=== PATIENT | male | born 1975 | race Caucasian/White ===

== ENCOUNTER 2019-02-16 02:31 | Emergency (ER) | payer OTHER ==
--- NOTE | 2019-02-16 02:59 | PDOC ---
History of Present Illness - General Chief Complaint: Pain, Acute Stated Complaint: ABD PAIN History Source: Patient Exam Limitations: No Limitations - History of Present Illness Initial Comments: 02/16/19 03:13 43 yo M with a hx of HTN presents to the emergency department with epigastric pain beginning at 8 pm. Gradual onset without previous pain before, he states it began after eating a greenlandic sandwich. The pain is located epigastric, non radiating, 7/10, sharp pain, without aggravating and relieving factors. Denies hx of RUQ pain when eating fatty foods. Denies hx of abdominal surgeries. Endorses 1x vomiting episode NBNB that he states helped relieve the pain. Shx: None Allergies: NKDA Social: Denies tobacco, alcohol, and substance abuse. Past History - Past Medical History Allergies/Adverse Reactions: Allergies Allergy/AdvReac Type Severity Reaction Status Date / Time No Known Allergies Allergy Verified 02/16/19 02:57 COPD: No - Suicide/Smoking/Psychosocial Hx Smoking History: Never smoked Review of Systems - Review of Systems Able to Perform ROS?: Yes Is the patient limited [place] proficient: No Constitutional: No: Chills, Diaphoresis, Fever, Weakness HEENTM: No: Eye Pain, Recent change in vision, Ear Pain, Nose Pain, Throat Pain , Mouth Pain Respiratory: No: Cough, Shortness of Breath, Hemoptysis Cardiac (ROS): No: Chest Pain, Lightheadedness, Palpitations, Syncope, Chest Tightness ABD/GI: Yes: Nausea, Vomiting, Abdominal cramping. No: Constipated, Diarrhea, Rectal Bleeding, Tarry Stools : No: Burning, Dysuria, Hematuria, Incontinence Musculoskeletal: No: Back Pain, Joint Pain, Neck Pain Integumentary: No: Bruising, Erythema, Rash Neurological: No: Headache, Numbness, Tingling, Tremors Psychiatric: No: Change in Appetite Endocrine: No: Unexplained Weight Gain Hematologic/Lymphatic: No: Anemia *Physical Exam - Vital Signs Last Vital Signs Temp Pulse Resp BP Pulse Ox 98.4 F 75 18 147/79 99 02/16/19 02:57 02/16/19 02:57 02/16/19 02:57 02/16/19 02:57 02/16/19 02:57 - Physical Exam General Appearance: Yes: Nourished, Appropriately Dressed, Obese. No: Apparent Distress, Intoxicated HEENT: positive: EOMI, DUKE, Normal Voice, Symmetrical, Pharynx Normal, Hearing Grossly Normal. negative: Pale Conjunctivae, Scleral Icterus (R), Scleral Icterus (L), Muffled/Hoarse voice, Pharyngeal Erythema, Tonsillar Exudate, Tonsillar Erythema, Excessive drooling Neck: positive: Trachea midline, Supple. negative: Tender, Lymphadenopathy (R) , Lymphadenopathy (L), Tender lateral, Tender midline Respiratory/Chest: positive: Lungs Clear, Normal Breath Sounds. negative: Chest Tender, Respiratory Distress, Accessory Muscle Use, Crackles, Rales, Rhonchi, Stridor, Wheezing Cardiovascular: positive: Regular Rhythm, Regular Rate, S1, S2. negative: Systolic Murmur Gastrointestinal/Abdominal: positive: Normal Bowel Sounds, Tender (epigastric. negative murphys), Flat, Soft. negative: Distended, Guarding, Rebound Lymphatic: negative: Adenopathy Musculoskeletal: positive: Normal Inspection. negative: CVA Tenderness, Vertebral Tenderness Extremity: positive: Normal Capillary Refill, Normal Inspection, Normal Range of Motion. negative: Tender, Swelling, Calf Tenderness Integumentary: positive: Normal Color, Dry, Warm. negative: Cold, Rash, Swelling, Ecchymosis Neurologic: positive: global human resources director II-XII NML intact, Fully Oriented, Alert, Normal Mood/ Affect, Normal Response, Motor Strength 5/5. negative: EOM Palsy, Facial Droop , Numbness, Sensory Deficit ED Treatment Course - LABORATORY CBC & Chemistry Diagram: 02/16/19 03:14 02/16/19 03:14 Medical Decision Making - Medical Decision Making 02/16/19 05:07 43 yo M with a hx of HTN presents to the emergency department with epigastric pain beginning at 8 pm. Initial vitals; Initial Vital Signs Temp Pulse Resp BP Pulse Ox 98.4 F 75 18 147/79 99 02/16/19 02:57 02/16/19 02:57 02/16/19 02:57 02/16/19 02:57 02/16/19 02:57 WOrk up: gastritis vs pancreatitis vs cholelithiasis vs cholecystitis vs GERD vs duodenal /gastric ulcer Laboratory Tests 02/16/19 02/16/19 03:14 03:14 WBC 10.7 H RBC 4.93 Hgb 14.3 Hct 43.1 MCV 87.4 MCH 29.0 MCHC 33.1 RDW 13.4 Plt Count 253 MPV 7.8 Absolute Neuts (auto) 8.0 Neutrophils % 74.9 Lymphocytes % 17.6 Monocytes % 5.5 Eosinophils % 1.6 Basophils % 0.4 Nucleated RBC % 0 Sodium 137 Potassium 3.9 Chloride 101 Carbon Dioxide 29 Anion Gap 7 L BUN 16 Creatinine 1.0 Est GFR (CKD-EPI)AfAm 106.36 Est GFR (CKD-EPI)NonAf 91.77 Random Glucose 132 H Calcium 9.0 Total Bilirubin 0.3 AST 27 ALT 64 H Alkaline Phosphatase 125 H Creatine Kinase 186 Creatine Kinase Index 0.6 CK-MB (CK-2) 1.2 Troponin I < 0.02 Total Protein 8.0 Albumin 3.6 Lipase 134 ALT and Alk phos elevated. pain controlled with tylenol, pepcid, maalox, and morphine. POCUS shows 1.36 cm gallstone without GBD thickening without pericholecystic fluid. Unable to visualize CBD due to shadowing artifact from stone. Will order a formal US to be done in AM to rule out CBD dilation. Will sign out to morning team for AM US. Signed out to Dr. Butler *DC/Admit/Observation/Transfer Diagnosis at time of Disposition: Abdominal pain Qualifiers: Abdominal location: epigastric Qualified Code(s): R10.13 - Epigastric pain - Discharge Dispostion Disposition: HOME - Referrals Referrals: Haley Martinez MD [Primary Care Provider] - Randal Kennedy MD [Staff Physician] - - Patient Instructions Printed Discharge Instructions: DI for Gallstones Additional Instructions: Please see your primary doctor and make an appointment to see the General Surgeon referred to you within the next 48 hours. Take over the counter Motrin for pain. Return to the ER for high fevers, excessive abdominal pain, vomiting, inability to eat or drink. Thank you - Post Discharge Activity
[2019-02-16 03:00] VITALS: BMI 39.3
--- NOTE | 2019-02-16 03:04 | PDOC ---
*Physical Exam - Vital Signs Last Vital Signs Temp Pulse Resp BP Pulse Ox 98.4 F 75 18 147/79 99 02/16/19 02:57 02/16/19 02:57 02/16/19 02:57 02/16/19 02:57 02/16/19 02:57 Medical Decision Making - Medical Decision Making 02/16/19 03:04 Patient seen by the advanced practice provider under my direct supervision. Ancillary testing reviewed as necessary. I agree with plan as outlined by the advanced practice provider. *DC/Admit/Observation/Transfer - Referrals Referrals: Haley Martinez MD [Primary Care Provider] - - Patient Instructions - Post Discharge Activity
[2019-02-16] MEDS ORDERED: FAMOTIDINE 20 MG/50 ML IVPB 20 MG/50 ML MG IVPB ONE ×2 (03:12→04:12)
[2019-02-16] MEDS ORDERED: MAG HYDROX/AL HYDROX/SIMETH 30 ML UNIT-DOSE CUP PO ONE (03:12)
[2019-02-16] MEDS ORDERED: SODIUM CHLORIDE 1,000 ML IV STA (03:12)
[2019-02-16] MEDS ORDERED: ACETAMINOPHEN 1000 MG/100 ML VIAL (NON FORMULARY) IVPB ONE (03:12)
[2019-02-16] MEDS ORDERED: ONDANSETRON 4 MG/2 ML VIAL IVPUSH ONE (03:12)
[2019-02-16 03:22] LABS: BASO % 0.4 % (0-2.0); EOS % 1.6 % (0-4.5); HEMATOCRIT 43.1 % (35.4-49); HEMOGLOBIN 14.3 GM/dL (11.7-16.9); LYMPH % 17.6 % (8-40); MCHC 33.1 g/dl (32.0-35.9); MEAN CELL VOLUME 87.4 fl (80-96); MEAN PLT VOLUME 7.8 fl (7.5-11.1); MONO % 5.5 % (3.8-10.2); NEUT % 74.9 % (42.8-82.8); PLATELET COUNT 253 K/MM3 (134-434); RBC 4.93 M/mm3 (4.00-5.60); RDW 13.4 % (11.9-15.9); WHITE BLOOD COUNT 10.7 K/mm3 (4.0-10.0)
[2019-02-16 03:46] LABS: ALBUMIN 3.6 g/dl (3.4-5.0); ALK PHOS 125 U/L (45-117); ANION GAP 7 MMOL/L (8-16); BILIRUBIN,TOTAL 0.3 mg/dL (0.2-1); BLOOD UREA NITROGEN 16 mg/dL (7-18); CHLORIDE 101 mmol/L (98-107); CO2 29 mmol/L (21-32); GLUCOSE,RANDOM 132 mg/dL (74-106); LIPASE 134 U/L (73-393); POTASSIUM 3.9 mmol/L (3.5-5.1); SGOT/AST 27 U/L (15-37); SGPT/ALT 64 U/L (13-61); SODIUM 137 mmol/L (136-145)
[2019-02-16] MEDS ORDERED: MAG HYDROX/AL HYDROX/SIMETH 30 ML UNIT-DOSE CUP ONE (04:12)
[2019-02-16] MEDS ORDERED: ACETAMINOPHEN INJECTION 100 ML IVPB ONE (04:12)
[2019-02-16] MEDS ORDERED: ONDANSETRON 4 MG/2 ML VIAL ONE (04:12)
--- NOTE | 2019-02-16 05:09 | PDOC ---
Attending Attestation - Resident Resident Name: Rodrigue Porter - ED Attending Attestation I have performed the following: I have examined & evaluated the patient, The case was reviewed & discussed with the resident, I agree w/resident's findings & plan - HPI HPI: 02/16/19 05:08 43-year-old male with epigastric pain for several hours with one episode of vomiting. Patient denies back pain chest pain shortness of breath or diarrhea. - Physicial Exam PE: 02/16/19 05:08 Agree with resident's exam - Medical Decision Making 02/16/19 05:08 43-year-old male with epigastric pain Patient greatly improved after antacids antiemetics and IV fluids Bedside ultrasound shows possible gallbladder disease We'll hold for a morning right upper quadrant ultrasound, plan on signing out to oncoming shift for final disposition
[2019-02-16] MEDS ORDERED: morphine CARPU-JECT 4 MG/1 ML DISP.SYRIN IVPUSH ONE (06:15)
[2019-02-16] MEDS ORDERED: morphine SULFATE 4 MG/ML VIAL ONE (06:33)
[2019-02-16 08:00] VITALS: TEMP 98.2
--- NOTE | 2019-02-16 10:46 | PDOC ---
*Physical Exam - Vital Signs Last Vital Signs Temp Pulse Resp BP Pulse Ox 98.2 F 79 16 137/78 98 02/16/19 07:39 02/16/19 07:39 02/16/19 07:39 02/16/19 07:39 02/16/19 07:39 ED Treatment Course - LABORATORY CBC & Chemistry Diagram: 02/16/19 03:14 02/16/19 03:14 - ADDITIONAL ORDERS Additional order review: Laboratory Results 02/16/19 03:14 Sodium 137 Potassium 3.9 Chloride 101 Carbon Dioxide 29 Anion Gap 7 L BUN 16 Creatinine 1.0 Est GFR (CKD-EPI)AfAm 106.36 Est GFR (CKD-EPI)NonAf 91.77 Random Glucose 132 H Calcium 9.0 Total Bilirubin 0.3 AST 27 ALT 64 H Alkaline Phosphatase 125 H Creatine Kinase 186 Creatine Kinase Index 0.6 CK-MB (CK-2) 1.2 Troponin I < 0.02 Total Protein 8.0 Albumin 3.6 Lipase 134 02/16/19 03:14 RBC 4.93 MCV 87.4 MCHC 33.1 RDW 13.4 MPV 7.8 Neutrophils % 74.9 Lymphocytes % 17.6 Monocytes % 5.5 Eosinophils % 1.6 Basophils % 0.4 - Medications Given in the ED: ED Medications Discontinued Medications Generic Name Dose Route Start Last Admin Trade Name Nba PRN Reason Stop Dose Admin Acetaminophen 1,000 mg 02/16/19 03:12 02/16/19 04:20 Ofirmev Injection - IVPB 02/16/19 03:13 1,000 mg ONCE ONE Administration Al Hydroxide/Mg Hydroxide 30 ml 02/16/19 03:12 02/16/19 04:15 Mylanta Oral Suspension - PO 02/16/19 03:13 30 ml ONCE ONE Administration Famotidine/Sodium Chloride 20 mg in 50 mls @ 100 mls/hr 02/16/19 03:12 04:50 Pepcid 20 Mg Premixed Ivpb - IVPB 02/16/19 03:41 100 mls/hr ONCE ONE Administration Sodium Chloride 1,000 mls @ 1,000 mls/hr 02/16/19 03:12 02/16/19 04:20 Normal Saline - IV 02/16/19 04:11 1,000 mls/hr ASDIR STA Administration Morphine Sulfate 4 mg 02/16/19 06:15 02/16/19 06:38 Morphine Injection - IVPUSH 02/16/19 06:16 4 mg ONCE ONE Administration Ondansetron HCl 4 mg 02/16/19 03:12 02/16/19 04:25 Zofran Injection IVPUSH 02/16/19 03:13 4 mg ONCE ONE Administration Medical Decision Making - Medical Decision Making 02/16/19 10:42 s/o from Dr. Porter 43 yo male with likely gallstone, pending AM sono Labs WNL with slight LFT elevation no N/V/F/C Sono shows cholelithiasis 2.8 cm without evidence of cholecystitis, no mention of CBD Pt NAD, eating and drinking without difficulty Pt will DC home with gen surg f/u pt safe for DC home at this time, all questions answered *DC/Admit/Observation/Transfer Diagnosis at time of Disposition: Abdominal pain Qualifiers: Abdominal location: epigastric Qualified Code(s): R10.13 - Epigastric pain - Discharge Dispostion Disposition: HOME - Referrals Referrals: Haley Martinez MD [Primary Care Provider] - Randal Kennedy MD [Staff Physician] - - Patient Instructions Printed Discharge Instructions: DI for Gallstones Additional Instructions: Please see your primary doctor and make an appointment to see the General Surgeon referred to you within the next 48 hours. Take over the counter Motrin for pain. Return to the ER for high fevers, excessive abdominal pain, vomiting, inability to eat or drink. Thank you - Post Discharge Activity
[2019-02-16 11:16] VITALS: BP 115/78; PULSE 107
--- NOTE | 2019-02-16 16:02 | EKG ---
Test Reason : Blood Pressure : / mmHG Vent. Rate : 072 BPM Atrial Rate : 072 BPM P-R Int : 156 ms QRS Dur : 092 ms QT Int : 398 ms P-R-T Axes : 048 -04 017 degrees QTc Int : 435 ms NORMAL SINUS RHYTHM NORMAL ECG NO PREVIOUS ECGS AVAILABLE Confirmed by SHANNON CARABALLO MD ([id number]) on 02/16/2019 4:01:47 PM Referred By: Confirmed By:SHANNON CARABALLO MD
== END 2019-02-16 11:21 | disposition home or self-care (01) ==
LOC: JER 02:31
PROC: 3E033GC Introduction of Other Therapeutic Substance into Peripheral Vein, Percutaneous Approach (ICD-10-PCS; principal; 2019-02-16)
PROC: 3E033NZ Introduction of Analgesics, Hypnotics, Sedatives into Peripheral Vein, Percutaneous Approach (ICD-10-PCS; 2019-02-16)
PROC: 3E033NZ Introduction of Analgesics, Hypnotics, Sedatives into Peripheral Vein, Percutaneous Approach (ICD-10-PCS; 2019-02-16)
PROC: BF43ZZZ Ultrasonography of Gallbladder and Bile Ducts (ICD-10-PCS; 2019-02-16)
DX: K80.20 Calculus of gallbladder without cholecystitis without obstruction (principal)
CPT/HCPCS: 36415; 76705-TC; 80053; 82550; 82553; 83690; 84484; 85025; 93005; 93010; 99283-25; J0131; J7030